=== PATIENT | male | born 1960 | race Caucasian/White ===

== ENCOUNTER 2023-06-22 04:55 | Emergency (ER) | payer OTHER, MEDICAID ==
[~2023-06-22] VITALS: Ht 177.8 cm; Wt 91.2 kg
--- OUTSIDE RECORDS SUMMARY | ~2023-06-22 | XMS | Continuity of Care Document ---
Demographics + + + | Address | [address] | | | [place] [address] | + + + | Preferred Language | Unknown | + + + | Marital Status | | + + + | Rastafarian Affiliation | Unknown | + + + | Race | White | + + + | Ethnic Group | Unknown | + + + Author + + + | Author | [facility] | + + + | Organization | [facility] | + + + | Address | [address] | | | [place] [address] | + + + | Phone | | + + + Care Team Providers + + + + | Care Client Service Supervisor Name | Role | Phone | + + + + Unavailable | Unavailable | + + + + Unavailable | Unavailable | + + + + Allergies No information. Encounters No information. Functional Status No information. Immunizations No information. Medications No information. Problems + + + + | date | description | facility | + + + + | 2023-06-02 00:32 | Hypertension | [facility] | | | | [facility] | + + + + | 2023-06-02 00:32 | Hypertension | [facility] | | | | [facility] | + + + + | 2023-06-02 00:32 | Elevated blood-pressure | [facility] - | | | reading, without diagnosis | [facility] | | | of hypertension | | + + + + | 2023-06-02 00:32 | Sleep deprivation | [facility] | | | | [facility] | + + + + Procedures No information. Results/Labs +--------+--------+ +---------+--------+---------+ | test | date | facility | value | unit | notes | +--------+--------+ +---------+--------+---------+ + + | Result panel 1 | + + + + + +--------+ + + | EGFR | 2023-06-02 | [facility] | > | | (missing) | | (GLOMERULAR | 01:04 | Health | | ml/min/1.73m | | | FILTRATION | | System - | | ? | | | RATE) | | [facility] | | | | | ML/MIN/1.73 | | | | | | | SQ M. | | | | | | + + + +--------+ + + | NRBC/100 | 2023-06-02 | [facility] | 0.0 | % | (missing) | | WBCS BY | 01:04 | Health | | | | | AUTOMATED | | System - | | | | | COUNT | | [facility] | | | | + + + +--------+ + + | BASOPHILS | 2023-06-02 | [facility] | 0.0 | k/mcl | (missing) | | (10*3/UL) IN | 01:04 | Health | | | | | BLOOD BY | | System - | | | | | AUTOMATED | | [facility] | | | | | COUNT | | | | | | + + + +--------+ + + | | 2023-06-02 | [facility] | 0.0 | k/mcl | (missing) | | NRBC(10*3/UL | 01:04 | Health | | | | | ) IN BLOOD | | System - | | | | | BY AUTOMATED | | [facility] | | | | | COUNT | | | | | | + + + +--------+ + + | EOSINOPHILS | 2023-06-02 | [facility] | 0.0 | k/mcl | (missing) | | (10*3/UL) | 01:04 | Health | | | | | IN BLOOD BY | | System - | | | | | AUTOMATED | | [facility] | | | | | COUNT | | | | | | + + + +--------+ + + | IMMATURE | 2023-06-02 | [facility] | 0.01 | k/mcl | (missing) | | GRANULOCYTE | 01:04 | Health | | | | | (ABS) | | System - | | | | | | | [facility] | | | | + + + +--------+ + + | IMMATURE | 2023-06-02 | [facility] | 0.2 | % | (missing) | | GRANULOCYTE | 01:04 | Health | | | | | % (AUTO) | | System - | | | | | | | [facility] | | | | + + + +--------+ + + | BILIRUBIN | 2023-06-02 | [facility] | 0.2 | mg/dl | (missing) | | TOTAL | 01:04 | Health | | | | | (MG/DL) IN | | System - | | | | | SER/PLAS | | [facility] | | | | + + + +--------+ + + | | 2023-06-02 | [facility] | 0.5 | % | (missing) | | BASOPHILS/10 | 01:04 | Health | | | | | 0 LEUKOCYTES | | System - | | | | | IN BLOOD BY | | [facility] | | | | | AUTOMATED | | | | | | | COUNT | | | | | | + + + +--------+ + + | | 2023-06-02 | [facility] | 0.6 | % | (missing) | | EOSINOPHILS/ | 01:04 | Health | | | | | 100 | | System - | | | | | LEUKOCYTES | | [facility] | | | | | IN BLOOD BY | | | | | | | AUTOMATED | | | | | | | COUNT | | | | | | + + + +--------+ + + | CREATININE | 2023-06-02 | [facility] | 0.7 | mg/dl | (missing) | | (MG/DL) IN | 01:04 | Health | | | | | SER/PLAS | | System - | | | | | | | [facility] | | | | + + + +--------+ + + | MONOCYTES | 2023-06-02 | [facility] | 0.9 | k/mcl | (missing) | | (10*3/UL) IN | 01:04 | Health | | | | | BLOOD BY | | System - | | | | | AUTOMATED | | [facility] | | | | | COUNT | | | | | | + + + +--------+ + + | LYMPHOCYTES | 2023-06-02 | [facility] | 1.7 | k/mcl | (missing) | | (10*3/UL) | 01:04 | Health | | | | | IN BLOOD BY | | System - | | | | | AUTOMATED | | [facility] | | | | | COUNT | | | | | | + + + +--------+ + + | CHLORIDE | 2023-06-02 | [facility] | 106 | mmol/l | (missing) | | (MMOL/L) IN | 01:04 | Health | | | | | SER/PLAS | | System - | | | | | | | [facility] | | | | + + + +--------+ + + | ERYTHROCYTE | 2023-06-02 | [facility] | 13.0 | % | (missing) | | | 01:04 | Health | | | | | DISTRIBUTION | | System - | | | | | WIDTH | | [facility] | | | | | (RATIO) BY | | | | | | | AUTOMATED | | | | | | | COUNT | | | | | | + + + +--------+ + + | GLUCOSE, | 2023-06-02 | [facility] | 134 | mg/dl | (missing) | | RANDOM | 01:04 | Health | | | | | (MG/DL) IN | | System - | | | | | SER/PLAS | | [facility] | | | | + + + +--------+ + + | HEMOGLOBIN | 2023-06-02 | [facility] | 14.2 | g/dl | (missing) | | (G/DL) IN | 01:04 | Health | | | | | BLOOD | | System - | | | | | | | [facility] | | | | + + + +--------+ + + | | 2023-06-02 | [facility] | 14.6 | % | (missing) | | MONOCYTES/10 | 01:04 | Health | | | | | 0 LEUKOCYTES | | System - | | | | | IN BLOOD BY | | [facility] | | | | | AUTOMATED | | | | | | | COUNT | | | | | | + + + +--------+ + + | SODIUM | 2023-06-02 | [facility] | 141 | mmol/l | (missing) | | (MMOL/L) IN | 01: | Health | | | | | SER/PLAS | | System - | | | | | | | [facility] | | | | + + + +--------+ + + | BLOOD UREA | 2023-06-02 | [facility] | 15 | mg/dl | (missing) | | NITROGEN | : | Health | | | | | (BUN) | | System - | | | | | (MG/DL) IN | | [facility] | | | | | SER/PLAS | | | | | | + + + +--------+ + + | ALKALINE | 2023-06-02 | [facility] | 212 | u/l | (missing) | | PHOSPHATASE | 01:04 | Health | | | | | (U/L) IN | | System - | | | | | SER/PLAS | | [facility] | | | | + + + +--------+ + + | ASPARTATE | 2023-06-02 | [facility] | 23 | u/l | (missing) | | AMINOTRANSFE | 01:04 | Health | | | | | RASE (SGOT) | | System - | | | | | (U/L) IN | | [facility] | | | | | SER/PLAS | | | | | | + + + +--------+ + + | PLATELETS | 2023-06-02 | [facility] | 259 | k/mcl | (missing) | | (10*3/UL) IN | 01:04 | Health | | | | | BLOOD | | System - | | | | | AUTOMATED | | [facility] | | | | | COUNT | | | | | | + + + +--------+ + + | CARBON | 2023-06-02 | [facility] | 26 | mmol/l | (missing) | | DIOXIDE | 01:04 | Health | | | | | (CO2), TOTAL | | System - | | | | | (MMOL/L) IN | | [facility] | | | | | SER/PLAS | | | | | | + + + +--------+ + + | | 2023-06-02 | [facility] | 26.8 | % | (missing) | | LYMPHOCYTES/ | 01:04 | Health | | | | | 100 | | System - | | | | | LEUKOCYTES | | [facility] | | | | | IN BLOOD BY | | | | | | | AUTOMATED | | | | | | | COUNT | | | | | | + + + +--------+ + + | ALANINE | 2023-06-02 | [facility] | 27 | u/l | (missing) | | AMINOTRANSFE | 01:04 | Health | | | | | RASE (SGPT) | | System - | | | | | (U/L) IN | | [facility] | | | | | SER/PLAS | | | | | | + + + +--------+ + + | NEUTROPHILS | 2023-06-02 | [facility] | 3.6 | k/mcl | (missing) | | (10*3/UL) | 01:04 | Health | | | | | IN BLOOD BY | | System - | | | | | AUTOMATED | | [facility] | | | | | COUNT | | | | | | + + + +--------+ + + | ERYTHROCYTE | 2023-06-02 | [facility] | 31.6 | pg | (missing) | | MEAN | 01:04 | Health | | | | | CORPUSCULAR | | System - | | | | | HEMOGLOBIN | | [facility] | | | | | (PG) BY | | | | | | | AUTOMATED | | | | | | | COUNT | | | | | | + + + +--------+ + + | ERYTHROCYTE | 2023-06-02 | [facility] | 34.4 | g/dl | (missing) | | MEAN | 01:04 | Health | | | | | CORPUSCULAR | | System - | | | | | HEMOGLOBIN | | [facility] | | | | | CONCENTRATIO | | | | | | | N (G/DL) BY | | | | | | | AUTOMATED | | | | | | + + + +--------+ + + | POTASSIUM | 2023-06-02 | [facility] | 4.0 | mmol/l | (missing) | | (MMOL/L) IN | 01:04 | Health | | | | | SER/PLAS | | System - | | | | | | | [facility] | | | | + + + +--------+ + + | ALBUMIN | 2023-06-02 | [facility] | 4.2 | g/dl | (missing) | | (G/DL) IN | 01:04 | Health | | | | | SER/PLAS | | System - | | | | | | | [facility] | | | | + + + +--------+ + + | | 2023-06-02 | [facility] | 4.50 | m/mcl | (missing) | | ERYTHROCYTES | 01:04 | Health | | | | | (10*6/UL) | | System - | | | | | IN BLOOD BY | | [facility] | | | | | AUTOMATED | | | | | | | COUNT | | | | | | + + + +--------+ + + | HEMATOCRIT | 2023-06-02 | [facility] | 41.3 | % | (missing) | | (%) IN BLOOD | 01:04 | Health | | | | | BY | | System - | | | | | AUTOMATED | | [facility] | | | | | COUNT | | | | | | + + + +--------+ + + | | 2023-06-02 | [facility] | 57.3 | % | (missing) | | NEUTROPHILS/ | 01:04 | Health | | | | | 100 | | System - | | | | | LEUKOCYTES | | [facility] | | | | | IN BLOOD BY | | | | | | | AUTOMATED | | | | | | | COUNT | | | | | | + + + +--------+ + + | | 2023-06-02 | [facility] | 6.2 | k/mcl | (missing) | | LEUKOCYTES(1 | 01:04 | Health | | | | | 0*3/UL) IN | | System - | | | | | BLOOD BY | | [facility] | | | | | AUTOMATED | | | | | | | COUNT | | | | | | + + + +--------+ + + | PROTEIN | 2023-06-02 | [facility] | 6.9 | g/dl | (missing) | | (G/DL) IN | 01:04 | Health | | | | | SER/PLAS | | System - | | | | | | | [facility] | | | | + + + +--------+ + + | PLATELET | 2023-06-02 | [facility] | 8.8 | fl | (missing) | | MEAN VOLUME | 01:04 | Health | | | | | (FL) IN | | System - | | | | | BLOOD BY | | [facility] | | | | | AUTOMATED | | | | | | | COUNT | | | | | | + + + +--------+ + + | ANION GAP | 2023-06-02 | [facility] | 9.0 | mmol/l | (missing) | | IN SER/PLAS | : | Health | | | | | | | System - | | | | | | | [facility] | | | | + + + +--------+ + + | CALCIUM | 2023-06-02 | [facility] | 9.5 | mg/dl | (missing) | | (MG/DL) IN | 01:04 | Health | | | | | SER/PLAS | | System - | | | | | | | [facility] | | | | + + + +--------+ + + | ERYTHROCYTE | 2023-06-02 | [facility] | 91.8 | fl | (missing) | | MEAN | 01: | Health | | | | | CORPUSCULAR | | System - | | | | | VOLUME (FL) | | [facility] | | | | | BY AUTOMATED | | | | | | | COUNT | | | | | | + + + +--------+ + + Social History +--------+ + + | date | description | facility | +--------+ + + Vital Signs No information."
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
[2023-06-22] MEDS ORDERED: ondansetron HCL 4 MG/2 ML VIAL IV ONE (05:15)
[2023-06-22] MEDS ORDERED: KETOROLAC TROMETHAMINE 30 MG/ML VIAL IV ONE (05:15)
[2023-06-22] MEDS ORDERED: HYDROmorphone HCL 1 MG/ML SYR IV PRN (05:15)
[2023-06-22 06:10] LABS: BILIRUBIN, URINE NEGATIVE (negative); BLOOD/HGB, URINE NEGATIVE (Negative); KETONE, URINE NEGATIVE (Negative); LEUK ESTERASE, URINE NEGATIVE (negative); NITRITE, URINE NEGATIVE (negative)
[2023-06-22 06:20] LABS: RED BLOOD CELLS, URINE 0-1 /hpf (0-5); WHITE BLOOD CELLS, URINE 0-1 /HPF (0-5)
[2023-06-22 06:22] LABS: BACTERIA, URINE RARE /hpf (negative); CASTS, URINE NONE SEEN \\lpf; COLLECTION TYPE, URINE CLEAN CATCH; CRYSTALS, URINE NONE SEEN (0-1+); REFLEX CULTURE, URINE No (No)
[2023-06-22 06:24] LABS: AMPHETAMINES, URINE NEGATIVE (NEGATIVE); BARBITURATES, URINE NEGATIVE (NEGATIVE); BENZODIAZEPINE, URINE NEGATIVE (NEGATIVE); BUPRENORPHINE, URINE NEGATIVE (NEGATIVE); CANNABINOID, URINE NEGATIVE (NEGATIVE); COCAINE, URINE NEGATIVE (NEGATIVE); ECSTASY, URINE NEGATIVE (NEGATIVE); FENTANYL, URINE POSITIVE (NEGATIVE); METHADONE, URINE NEGATIVE (NEGATIVE); OPIATES, URINE NEGATIVE (NEGATIVE); OXYCODONE, URINE NEGATIVE (NEGATIVE); PHENCYCLIDINE, URINE NEGATIVE (NEGATIVE)
[2023-06-22] MEDS ORDERED: HYDROCODON-ACE1 EA10 PO (06:37)
[2023-06-22] MEDS ORDERED: HYDROCODONE BIT/ACETAMINOPHEN 5/325 MG 1 TAB HOME.PACK PO PRN (06:45)
[2023-06-22 06:57] VITALS: BP 127/80
== END 2023-06-22 06:58 | disposition home or self-care (01) ==
LOC: ED 04:55
PROVIDERS: Emergency Medicine
DX: S20.211A Contusion of right front wall of thorax, initial encounter (principal); S63.92XA Sprain of unspecified part of left wrist and hand, initial encounter; G47.30 Sleep apnea, unspecified; V89.2XXA Person injured in unspecified motor-vehicle accident, traffic, initial encounter; Y93.9 Activity, unspecified
CPT/HCPCS: 36415; 80307; 81001; 96374; 96375; 99284-25; A9270; G0480; J1170; J1885; J2405